=== PATIENT | female | born 1940 | race Caucasian/White ===

== ENCOUNTER 2018-07-25 20:13 | Emergency (ER) | payer OTHER ==
[2018-07-25 20:38] VITALS: TEMP 98; BMI 34.5
--- NOTE | 2018-07-25 21:07 | PDOC ---
History of Present Illness - General Chief Complaint: Ear Problem Stated Complaint: PROBLEM WITH EARS Time Seen by Provider: 07/25/18 21:02 History Source: Patient Past History - Past Medical History Allergies/Adverse Reactions: Allergies Allergy/AdvReac Type Severity Reaction Status Date / Time No Known Drug Allergies Allergy Verified 04/28/15 11:25 Home Medications: Ambulatory Orders Metformin HCl [Glucophage] 500 mg PO BID #60 tab 04/11/11 Multivitamin [Daily Multiple Vitamin] 1 each PO DAILY #1 tablet 04/11/11 Ascorbate Calcium [Vitamin C] 500 mg PO ASDIR 04/24/15 Cholecalciferol (Vitamin D3) [Vitamin D-400] 50,000 unit PO WEEKLY 04/24/15 Furosemide [Lasix] 20 mg PO ASDIR 04/24/15 Vitamin E Acetate [Vitamin E] 400 mg PO DAILY 04/24/15 Simvastatin 40 mg PO HS 04/27/15 Valsartan 320 mg PO DAILY 04/27/15 Anemia: Yes Asthma: No Cancer: Yes (non-hodgkin lymphoma) Cardiac Disorders: No CVA: No COPD: No CHF: No Dementia: No Diabetes: Yes (NIDDM) GI Disorders: No Disorders: No HTN: Yes Hypercholesterolemia: Yes Liver Disease: No Seizures: No Thyroid Disease: No - Surgical History Abdominal Surgery: No Appendectomy: No Cardiac Surgery: No Cholecystectomy: No Lung Surgery: No Neurologic Surgery: No Orthopedic Surgery: No (RIGHT HIP PINNING) - Suicide/Smoking/Psychosocial Hx Smoking History: Never smoked Have you smoked in the past 12 months: No If you are a former smoker, when did you quit?: 1989 Hx Alcohol Use: Yes (SOCIALLY) Drug/Substance Use Hx: No Substance Use Type: Alcohol Hx Substance Use Treatment: No *Physical Exam - Vital Signs Last Vital Signs Temp Pulse Resp BP Pulse Ox 98 F 98 H 20 199/88 H 98 07/25/18 20:35 07/25/18 20:35 07/25/18 20:35 07/25/18 20:35 07/25/18 20:35
[2018-07-25] MEDS ORDERED: LOSARTAN POTASSIUM 50 MG TABLET (FP) PO ONE (21:38)
[2018-07-25] MEDS ORDERED: LOSARTAN POTASSIUM 50 MG TABLET (FP) ONE (22:08)
--- NOTE | 2018-07-25 22:13 | PDOC ---
*Physical Exam - Vital Signs Last Vital Signs Temp Pulse Resp BP Pulse Ox 98 F 98 H 20 199/88 H 98 07/25/18 20:35 07/25/18 20:35 07/25/18 20:35 07/25/18 20:35 07/25/18 20:35 - Physical Exam General Appearance: No: Appropriately Dressed HEENT: positive: Normal ENT Inspection, Normal Voice Respiratory/Chest: positive: Lungs Clear, Normal Breath Sounds Cardiovascular: positive: Regular Rhythm, Regular Rate, S1, S2 Gastrointestinal/Abdominal: positive: Normal Bowel Sounds, Soft. negative: Tender Extremity: positive: Normal Capillary Refill, Normal Inspection, Normal Range of Motion. negative: Pedal Edema, Erythema Integumentary: positive: Normal Color, Dry, Warm Neurologic: positive: Fully Oriented, Alert, Normal Mood/Affect ED Treatment Course - RADIOLOGY Radiology Studies Ordered: Category Date Time Status CHEST PA & LAT [RAD] Stat Radiology 07/25/18 22:05 Ordered Medical Decision Making - Medical Decision Making 07/25/18 22:09 78 yo F h/o NHL in remission HTN here with c/o cough nasal congstion and ear fullness. tongiht around 7:30 pm heard a popping sensatio in her ear. similar to when pressure changes. no change to hearing. no loss of fluid from ear canal , no blood from ear canal. cough productive of clear phlegm. started one week ago. was started on levaquin by her pcp few days prior. no n/v no f/c no leg swelling. pt denies headache. no n/v no weakness. on exam pt throat normal mild nasal turbinate enlargement. TM intact clear with serous fluid bilaterally . lungs clear bilaterally heart rrr no mg abd soft nt nd ext wwp no edema. no calf tenderness. differential bronchitis, sinusitis with serous otitis, pna ,chf. plan cxr . pt bp elevated. due for her evening meds. emily given losartan and reassess. nicolas dc home with ent followup and pcp followup for bp control. *DC/Admit/Observation/Transfer - Referrals Referrals: Margarito Tim MD [Primary Care Provider] - - Patient Instructions - Post Discharge Activity
--- NOTE | 2018-07-25 22:41 | PDOC ---
History of Present Illness - General Chief Complaint: Ear Problem Stated Complaint: PROBLEM WITH EARS Time Seen by Provider: 07/25/18 21:02 History Source: Patient Exam Limitations: No Limitations Past History - Past Medical History Allergies/Adverse Reactions: Allergies Allergy/AdvReac Type Severity Reaction Status Date / Time No Known Drug Allergies Allergy Verified 07/25/18 22:53 Home Medications: Ambulatory Orders Metformin HCl [Glucophage] 500 mg PO BID #60 tab 04/11/11 Multivitamin [Daily Multiple Vitamin] 1 each PO DAILY #1 tablet 04/11/11 Ascorbate Calcium [Vitamin C] 500 mg PO ASDIR 04/24/15 Cholecalciferol (Vitamin D3) [Vitamin D-400] 50,000 unit PO WEEKLY 04/24/15 Furosemide [Lasix] 20 mg PO ASDIR 04/24/15 Vitamin E Acetate [Vitamin E] 400 mg PO DAILY 04/24/15 Simvastatin 40 mg PO HS 04/27/15 Valsartan 320 mg PO DAILY 04/27/15 Anemia: Yes Asthma: No Cancer: Yes (non-hodgkin lymphoma) Cardiac Disorders: No CVA: No COPD: No CHF: No Dementia: No Diabetes: Yes (NIDDM) GI Disorders: No Disorders: No HTN: Yes Hypercholesterolemia: Yes Liver Disease: No Seizures: No Thyroid Disease: No - Surgical History Abdominal Surgery: No Appendectomy: No Cardiac Surgery: No Cholecystectomy: No Lung Surgery: No Neurologic Surgery: No Orthopedic Surgery: No (RIGHT HIP PINNING) - Suicide/Smoking/Psychosocial Hx Smoking History: Never smoked Have you smoked in the past 12 months: No If you are a former smoker, when did you quit?: 1989 Hx Alcohol Use: Yes (SOCIALLY) Drug/Substance Use Hx: No Substance Use Type: Alcohol Hx Substance Use Treatment: No *Physical Exam - Vital Signs Last Vital Signs Temp Pulse Resp BP Pulse Ox 98 F 98 H 20 199/88 H 98 07/25/18 20:35 07/25/18 20:35 07/25/18 20:35 07/25/18 20:35 07/25/18 20:35 - Physical Exam General Appearance: No: Apparent Distress HEENT: positive: Normal ENT Inspection, TMs Normal, Pharynx Normal. negative: Muffled/Hoarse voice, Pharyngeal Erythema, Tonsillar Exudate, Nasal Congestion, Rhinorrhea, Sinus Tenderness Respiratory/Chest: positive: Lungs Clear, Normal Breath Sounds. negative: Respiratory Distress Cardiovascular: positive: Regular Rhythm, Regular Rate, Systolic Murmur Gastrointestinal/Abdominal: positive: Normal Bowel Sounds, Soft. negative: Tender, Distended, Guarding, Rebound Extremity: negative: Pedal Edema, Swelling, Calf Tenderness, Erythema Integumentary: positive: Normal Color Neurologic: positive: Fully Oriented, Alert, Normal Mood/Affect ED Treatment Course - Medications Given in the ED: ED Medications Discontinued Medications Generic Name Dose Route Start Last Admin Trade Name Benedict PRN Reason Stop Dose Admin Losartan Potassium 100 mg 07/25/18 21:38 07/25/18 22:18 Cozaar - PO 07/25/18 21:39 100 mg ONCE ONE Administration Medical Decision Making - Medical Decision Making 78 y/o F with hx of HTN, HLD, DM, non-Hodgkin's lymphoma (in remission) presents with hearing popping sensation in both ears tonight. Spoke to the on- call doctor who advised her to take antihistamines, but that didn't feel right to patient so she came to ED. States has had a productive cough from last week. Saw her PCP 3 days ago and was started on Levaquin; no imaging was done, but her PCP felt she was a bit congested. Also states her blood pressure was a bit high during the visit and her doctor advised her to take her usual blood pressure medication, Irbesartan 300 mg at night (instead of morning) and started another medication, Triamterene/Hctz in the morning. Her BP was felt to be elevated possibly from cough medication patient was taking. Patient states the only thing she tried was [place] cough and cold. Has not taken any antitussives or decongestants in the past few days. Mentions mild rhinorrhea and congestion which has been improving. Denies fever, sob, cp, abd pain, n/v/ d. Only recent travel was to [facility], which was 2 weeks ago. PE unremarkable Could likely be congestion from cold Will get CXR Patient took her BP in the AM, but has not yet taken her night meds Irbesartan is NF; spoke to pharmacy, who said can give Losartan 100 mg as equivalent dose 07/25/18 22:[address] Escobedo - appears unremarkable Repeat BP was 145/101 Patient appears well Will refer to ENT Stable for dc 07/25/18 23:08 *DC/Admit/Observation/Transfer Diagnosis at time of Disposition: Congestion of both ears - Discharge Dispostion Disposition: HOME Condition at time of disposition: Stable Decision to Admit order: No - Referrals Referrals: Margarito Tim MD [Primary Care Provider] - 2 Days Pancho Wolf MD [Staff Physician] - 2 Days - Patient Instructions Additional Instructions: Thank you for choosing [facility]. It was a pleasure taking care of you. Continue taking your antibiotics Avoid taking decongestants that contain pseudoephedrine (like Sudafed) or phenylephrine as they may elevate your blood pressure Can use saline nasal spray if feeling congested You were referred to ENT doctor for further evaluation Please continue to take your blood pressure medications as prescribed and follow -up with your regular doctor Return to the Emergency Department if your symptoms worsen or persist or have other concerning symptoms. - Post Discharge Activity
[2018-07-25 23:41] VITALS: BP 150/90; PULSE 92
== END 2018-07-25 23:46 | disposition home or self-care (01) ==
LOC: JER 20:13
DX: H61.892 Other specified disorders of left external ear (principal); I10 Essential (primary) hypertension; E11.9 Type 2 diabetes mellitus without complications; E78.00 Pure hypercholesterolemia, unspecified; Z85.72 Personal history of non-Hodgkin lymphomas
CPT/HCPCS: 71046-TC-FY; 99282-25

== ENCOUNTER 2019-05-26 16:10 | Emergency (ER) | payer OTHER ==
[2019-05-26] MEDS ORDERED: DIPHTH,PERTUSS(ACELL),TET 0.5 ML DISP.SYRIN IM ONE ×2 (16:14→18:05)
[2019-05-26 16:16] VITALS: BP 164/71; PULSE 105; TEMP 97.8; BMI 32.9
--- NOTE | 2019-05-26 16:17 | PDOC ---
Rapid Medical Evaluation Time Seen by Provider: 05/26/19 16:13 Medical Evaluation: Allergies Allergy/AdvReac Type Severity Reaction Status Date / Time No Known Drug Allergies Allergy Verified 07/25/18 22:53 05/26/19 16:15 Pt c/o: trip and fall landing on rt hand and face Pt on brief exam: noted abrasion to rt side of face and nasal bridge, tender to base of rt thumb, vss pt ordered for: tdap, finger xray, facial and head ct Pt to proceed to the ED Discharge Disposition - Diagnosis Fall - Referrals - Patient Instructions - Post Discharge Activity
[2019-05-26] MEDS ORDERED: IBUPROFEN 600 MG TABLET (FP) PO ONE (18:28)
[2019-05-26] MEDS ORDERED: IBUPROFEN 400 MG TABLET (FP) PO ONE (18:31)
--- NOTE | 2019-05-26 18:39 | PDOC ---
History of Present Illness - General Chief Complaint: Injury Stated Complaint: FALL Time Seen by Provider: 05/26/19 16:13 - History of Present Illness Initial Comments: 05/26/19 18:32 79-year-old female presents for evaluation of mechanical fall. Patient states she was coming out of the store and fell onto her face after tripping. No loss of consciousness post injury nausea vomiting or visual changes she does complain of a headache. She takes no anticoagulation or aspirin no antiplatelet therapy she is diabetic and hypertensive at baseline Past History - Past Medical History Allergies/Adverse Reactions: Allergies Allergy/AdvReac Type Severity Reaction Status Date / Time No Known Drug Allergies Allergy Verified 05/26/19 16:16 levofloxacin [From Levaquin] AdvReac Verified 05/26/19 16:17 Home Medications: Ambulatory Orders Metformin HCl [Glucophage] 500 mg PO BID #60 tab 04/11/11 Multivitamin [Daily Multiple Vitamin] 1 each PO DAILY #1 tablet 04/11/11 Ascorbate Calcium [Vitamin C] 500 mg PO ASDIR 04/24/15 Cholecalciferol (Vitamin D3) [Vitamin D-400] 50,000 unit PO WEEKLY 04/24/15 Furosemide [Lasix] 20 mg PO ASDIR 04/24/15 Vitamin E Acetate [Vitamin E] 400 mg PO DAILY 04/24/15 Simvastatin 40 mg PO HS 04/27/15 Valsartan 320 mg PO DAILY 04/27/15 Anemia: Yes Asthma: No Cancer: Yes (non-hodgkin lymphoma) Cardiac Disorders: No CVA: No COPD: No CHF: No Dementia: No Diabetes: Yes (NIDDM) GI Disorders: No Disorders: No HTN: Yes Hypercholesterolemia: Yes Liver Disease: No Seizures: No Thyroid Disease: No - Surgical History Abdominal Surgery: No Appendectomy: No Cardiac Surgery: No Cholecystectomy: No Lung Surgery: No Neurologic Surgery: No Orthopedic Surgery: No (RIGHT HIP PINNING) - Immunization History Immunization Up to Date: Yes - Psycho Social/Smoking Cessation Hx Smoking History: Never smoked Have you smoked in the past 12 months: No If you are a former smoker, when did you quit?: 1989 Information on smoking cessation initiated: No Hx Alcohol Use: No Drug/Substance Use Hx: No Substance Use Type: Alcohol Hx Substance Use Treatment: No Review of Systems - Review of Systems HEENTM: Yes: Nose Pain *Physical Exam - Vital Signs Last Vital Signs Temp Pulse Resp BP Pulse Ox 97.8 F 105 H 18 164/71 98 05/26/19 16:13 05/26/19 16:13 05/26/19 16:13 05/26/19 16:13 05/26/19 16:13 - Physical Exam 05/26/19 18:33 GENERAL: The patient is awake, alert, and fully oriented, in no acute distress. HEAD: Normal ecchymosis under the right eye EYES: sclera anicteric, conjunctiva clear. ENT: Ears normal tympanic membranes normal oropharynx clear uvula midline; the nose is swollen and tender multiple superficial abrasions NECK: Normal range of motion LUNGS: Breath sounds equal, clear to auscultation bilaterally. No wheezes, and no crackles. HEART: S1 and S2 without murmur, rub or gallop. ABDOMEN: Soft, nontender, normoactive bowel sounds. No guarding, no rebound. No masses. EXTREMITIES: Normal range of motion, no edema. No clubbing or cyanosis. No cords, erythema, or tenderness. NEUROLOGICAL: Cranial nerves II through XII grossly intact. PSYCH: Normal mood, normal affect. SKIN: Warm, Dry, normal turgor, no rashes or lesions noted. ED Treatment Course - Medications Given in the ED: ED Medications Discontinued Medications Generic Name Dose Route Start Last Admin Trade Name Freq PRN Reason Stop Dose Admin Diphtheria/Tetanus/Acell Pertussis 0.5 ml 05/26/19 16:14 05/26/19 18:11 Boostrix - IM 05/26/19 16:15 0.5 ml .ONCE ONE Administration Ibuprofen 400 mg 05/26/19 18:28 05/26/19 18:32 Motrin - PO 05/26/19 18:29 400 mg ONCE ONE Administration Medical Decision Making - Medical Decision Making 05/26/19 18:33 Nasal fracture sparing the sinuses. No antibiotics required. Tetanus updated. Patient cannot tolerate Tylenol as this causes reflux. Motrin for pain as she tolerates this at baseline. Follow-up with ENT. As well as neurology. And her PCP. I have reviewed the pathophysiology with the patient. They are in agreement with the treatment plan all questions were answered to their satisfaction. Understanding for follow-up without fail was also conveyed to the patient. Again they are in agreement. Discharge - Discharge Information Problems reviewed: Yes Clinical Impression/Diagnosis: Fall, Nasal fracture Condition: Stable Disposition: HOME - Admission No - Follow up/Referral Referrals: Margarito Tim MD [Primary Care Provider] - Sergei Melendez MD [Staff Physician] - Pancho Wolf MD [Staff Physician] - - Patient Discharge Instructions Additional Instructions: You have a nasal bone fracture. Motrin for pain as directed. Return to the emergency room for worsening symptoms and without fail follow-up with ear nose and throat doctor in 1 to 2 days for further evaluation and treatment options. Because of your fall and hitting your head although you have a negative CAT scan you should follow-up with neurology without fail in the next 1 to 2 days for further evaluation and treatment options. Again return to the emergency room for worsening symptoms. Your CAT scan of your head was negative for acute injuries. There does appear to be an old injury in your brain which again you should follow-up with neurology for within the next 1 to 2 days. - Post Discharge Activity
== END 2019-05-26 19:06 | disposition home or self-care (01) ==
LOC: JERFT 16:10
PROC: 3E0234Z Introduction of Serum, Toxoid and Vaccine into Muscle, Percutaneous Approach (ICD-10-PCS; principal; 2019-05-26)
DX: S02.2XXA Fracture of nasal bones, initial encounter for closed fracture (principal); S06.9X0A Unspecified intracranial injury without loss of consciousness, initial encounter; W18.39XA Other fall on same level, initial encounter; Y93.89 Activity, other specified; Y92.89 Other specified places as the place of occurrence of the external cause; Z88.8 Allergy status to other drugs, medicaments and biological substances; Z87.891 Personal history of nicotine dependence; E11.9 Type 2 diabetes mellitus without complications; I10 Essential (primary) hypertension; E78.00 Pure hypercholesterolemia, unspecified; C85.90 Non-Hodgkin lymphoma, unspecified, unspecified site
CPT/HCPCS: 70450-TC; 70486-TC; 73140-TC-RT-FY; 90715; 99284-25

== ENCOUNTER → 2021-02-21 | Day surgery (SDC) | payer OTHER | END | disposition home or self-care (01) | LOC: JRADUS-SUR 08:30 | PROVIDERS: ATTEND Internal Medicine | PROC: 0H9T3ZX Drainage of Right Breast, Percutaneous Approach, Diagnostic (ICD-10-PCS; principal; 2021-02-21) | DX: D24.1 Benign neoplasm of right breast (principal) | CPT/HCPCS: 19083; 77065-TC; 87899; 88305-TC; A4648 ==